=== PATIENT | male | born 1970 | race Caucasian/White ===

== ENCOUNTER 2025-06-06 11:49 | Emergency (ER) | payer BC, SELFPAY ==
[2025-06-06 11:56] VITALS: BP 137/87
--- NOTE | 2025-06-06 14:01 | ED.GENMED ---
History of Present Illness
General
Chief Complaint: Musculo-Skeletal Complaint
Time Seen by Provider: 06/06/25 13:04
History of Present Illness
History of Present Illness:
54-year-old male presents to the emergency department for evaluation of right calf pain that developed yesterday after working out. States while squatting he felt a pop in the right calf and the leg has become progressively swollen since that time.
Concern for DVT due to recent varicose vein ablation performed 2 to 3 months ago
Review of Systems
Review of Systems
Allergies reviewed?: Yes
All Other Systems: ROS reviewed and negative except as documented in HPI and ROS
Phy Exam
Physical Exam
Physical Exam:
GEN: Well appearing, NAD, WDWN
HEENT: Oral mucosa moist, no scleral icterus
Cardiac: Regular rate
Lung: No respiratory distress, no tachypnea
MSK: R calf swelling/erythema with faint ecchymoses, no pain w/ passive stretch, negative Drake test
Skin: Good color, no pallor or jaundice, no rashes
Neuro: AO x3, moves all extremities freely
Psych: Calm, cooperative
Course
Orders/Labs/Results
Orders:
Orders
06/06/25 13:37
Venous Doppler Lwr Ext Rt [US Periph Venous LOWER Ext RT] Urgent
Comment:
Reason For Exam: R calf pain
Vital Signs
Initial and Last Documented VS:
Initial Vital Signs
Temp Pulse Resp BP Pulse Ox
98.1 F 70 16 137/87 99
06/06/25 11:56 06/06/25 11:56 06/06/25 11:56 06/06/25 11:56 06/06/25 11:56
Last Documented Vital Signs
Temp Pulse Resp BP Pulse Ox
98.1 F 70 16 137/87 99
06/06/25 11:56 06/06/25 11:56 06/06/25 11:56 06/06/25 11:56 12/15/25 14:03
MDM/Problems Addressed
MDM/Problems Addressed:
Ultrasound negative for DVT, confirms acute calf hematoma. No pain with passive stretch or firmness of the calf muscle concerning for compartment syndrome. Discussed supportive care
*Pulse Oximetry
SaO2: 99
Oxygen Mode of Delivery: Room air
Patient hypoxic: no
*Critical Care Note
Total Time (30-74mins, 75-104mins- exclusive of procedures): Not Applicable
ED Attending Note
-
Portions of this chart may have been created with voice recognition software.� Occasional wrong word or��sound alike� substitutions may have occurred due to the inherent limitations of voice recognition software.
Discharge Plan
Departure
Patient Disposition: Home (Routine Discharge)
Date of Disposition: 06/06/25
Time of Disposition: 14:15
Patient with high blood pressure during this ER visit?: No
Discharge Problem:
Hematoma of Calf, Right
Instructions: Hematoma
Activity Restrictions/Additional Instructions:
Ice and elevate the leg. Gentle stretching activities is okay but avoid heavy lifting or running/jumping
Use compression when upright for lengthy stretches
Interventions
Interventions:
*General Assessment Last Done: 06/06/25 11:56
*Neglect/Abuse Screening Last Done: 06/06/25 11:56
*Risk Screen - Suicide (C-SSRS) Last Done: 06/06/25 11:56
Discharge Date and Time
Print Language: BELARUSIAN
== END 2025-06-06 14:38 | disposition home or self-care (01) ==
LOC: EMR 11:49
PROVIDERS: EMERGENCY PHYSICIAN Emergency Medicine; FAMILY PHYSICIAN Family Medicine Adult Medicine
DX: S80.10XA Contusion of unspecified lower leg, initial encounter (principal); X58.XXXA Exposure to other specified factors, initial encounter; Z86.718 Personal history of other venous thrombosis and embolism
CPT/HCPCS: 99284; 93971